=== PATIENT | female | born 1975 | race African-American/Black ===

== ENCOUNTER 2019-05-31 12:37 | Emergency (ER) | payer BC ==
[2019-05-31] MEDS ORDERED: SODIUM CHLORIDE 1,000 ML IV STA (12:53)
[2019-05-31] MEDS ORDERED: ACETAMINOPHEN 1000 MG/100 ML VIAL (NON FORMULARY) IVPB ONE (12:53)
--- NOTE | 2019-05-31 12:53 | PDOC ---
History of Present Illness - General Chief Complaint: Cold Symptoms Stated Complaint: WEAKNESS BODY ACHES COUGH Time Seen by Provider: 05/31/19 12:43 History Source: Patient Exam Limitations: No Limitations - History of Present Illness Initial Comments: 05/31/19 12:45 Ms. Sprinegr is a 44-year-old female with a history of diabetes who presents emergency department with a complaint of upper respiratory symptoms. Patient states she began to have symptoms 3 days ago. She is noted generalized weakness, a feeling of being run down. She is noted a cough with yellow mucus She has noted myalgias, no arthralgias No ear pain, no throat pain. She feels like her mouth is dry which is typically a signal that she has had fevers. Patient notes fevers particularly at night Patient states that last year she had upper respiratory infection, was given a cough medicine with codeine. She has been taking Tamiflu as well as cough medicine with mild relief at night PMH: Sdo-pbooyai-kzqnyqcyc diabetes PSH: (11 years ago), tubal ligation, (3 years ago), breast biopsy (20 years ago) Meds: Metformin, glipizide, Janumet, losartan, statin ALL: NKDA Social: Denies alcohol, drug, cigarette, vaping FH: Noncontributory ROS: GENERAL/CONSTITUTIONAL: Yes: Subjective fevers, chills HEAD, EYES, EARS, NOSE AND THROAT: No: change in vision, ear pain, discharge, sore throat, throat swelling. CARDIOVASCULAR: No: chest pain, lightheadedness, palpitations RESPIRATORY: Yes: Exertional shortness of breath no: cough, wheezing GASTROINTESTINAL: No: nausea, vomiting, diarrhea, abdominal pain GENITOURINARY: No: dysuria, hematuria, frequency, urgency, flank pain. MUSCULOSKELETAL: Yes: Myalgias no: back pain, neck pain, joint pain, muscle swelling or pain SKIN AND BREASTS: No: lesions, pallor, rash or easy bruising. NEUROLOGIC: No: headache, vertigo, paresthesias, weakness ENDOCRINE: No: unexplained weight gain or loss HEMATOLOGIC/LYMPHATIC: No: anemia, easy bleeding, swelling nodes. PE: GENERAL: The patient is in no acute distress, patient appears weak, ANO x3. HEAD: Normal EYES: PERRLA, EOMI, sclera anicteric, conjunctiva clear. ENT: Ears normal, nares patent, oropharynx clear without exudates. Moist mucous membranes. NECK: Normal range of motion, supple, no meningismus LUNGS: Breath sounds equal, clear to auscultation bilaterally. No wheezes, and no crackles. HEART:Regular rate and rhythm, normal S1 and S2 without murmur, rub or gallop. ABDOMEN: Soft, nontender, normoactive bowel sounds. EXTREMITIES: Normal range of motion, no edema. NEUROLOGICAL: Cranial nerves II through XII grossly intact. Normal speech. No focal neurological deficits. MUSCULOSKELETAL: Back non-tender to palpation, no CVA tenderness SKIN: Warm, Dry, normal turgor, no rashes or lesions noted. 05/31/19 13:50 Is this a multiple visit Asthma Patient?: No Past History - Past Medical History Allergies/Adverse Reactions: Allergies Allergy/AdvReac Type Severity Reaction Status Date / Time No Known Allergies Allergy Unverified 05/31/19 12:42 Home Medications: Ambulatory Orders Atorvastatin Ca [Lipitor] 10 mg PO HS 05/31/19 Azithromycin [Zithromax 250mg Tablets -] 250 mg PO UTDICT #6 tab 05/31/19 Glipizide [Glipizide ER] 5 mg PO HS 05/31/19 Losartan Potassium 25 mg PO HS 05/31/19 Metformin HCl [Glucophage] 1,000 mg PO BID 05/31/19 Sitagliptin Phos/Metformin HCl [Janumet Xr 100-1,000 mg Tablet] 1 tab PO HS ED Treatment Course - LABORATORY CBC & Chemistry Diagram: 05/31/19 13:15 05/31/19 13:15 Medical Decision Making - Medical Decision Making 05/31/19 13:53 44 y/o female presents with complaints of productive cough, myalgias, and feeling rundown x3 days Influenza swab obtained No throat pain to suggest strep pharyngitis Symptoms seem most consistent with viral illness Basic labs sent IV hydration start Tylenol given Laboratory Tests 05/31/19 05/31/19 05/31/19 13:15 13:15 13:15 WBC 6.3 Hgb 11.1 Hct 34.0 Plt Count 206 BUN 14.0 Creatinine 0.6 Random Glucose 144 H Urine Blood Negative Urine Nitrite Negative Ur Leukocyte Esterase Negative 05/31/19 13:55 05/31/19 15:33 Influenza negative Chest x-ray right lower lobe infiltrate (??? Chronic) We will discharged home We will give a azithromycin I've instructed the patient to rest, remain hydrated and to take over the counter analgesics/antipyretics for pain or fever as instructed on the package. I've told the patient that if they develop any new or worsening symptoms to present straight to the ER and to follow up with their primary care provider in 24-48 hours. I've explained the above diagnosis and plan to the patient of which they expressed understanding and are in agreement. Discharge - Discharge Information Problems reviewed: Yes Clinical Impression/Diagnosis: Upper respiratory infection Qualifiers: URI type: unspecified URI Qualified Code(s): J06.9 - Acute upper respiratory infection, unspecified Condition: Stable Disposition: HOME - Admission No - Follow up/Referral - Patient Discharge Instructions Patient Printed Discharge Instructions: DI for Viral Upper Respiratory Infection -- Adult Additional Instructions: Ms. Springer Thank you for coming into the ER today We have done basic labs, you were given a copy for your review Your chest x-ray shows a right lower lobe infiltrate which will need to be followed up by your doctor in the next 2 weeks Please take medications as prescribed Return to the emergency department immediately with ANY new, persistent or worsening symptoms. Continue any medications as previously prescribed by your physician. You should follow up with your primary doctor as soon as possible regarding today's emergency department visit. Please make sure your doctor reviews the results of your emergency evaluation. Thank you for coming to the [facility] today for your care. It was a pleasure to see you today. Please note that your evaluation is INCOMPLETE until you follow-up with your doctor. - Post Discharge Activity Work/Back to School Note: Back to Work
[2019-05-31 12:57] VITALS: BP 136/86; PULSE 92; TEMP 98.5; BMI 25.5
[2019-05-31] MEDS ORDERED: ACETAMINOPHEN INJECTION 100 ML IVPB ONE (13:03)
[2019-05-31 13:40] LABS: BASO % 0.6 % (0-2.0); EOS % 1.5 % (0-4.5); HEMOGLOBIN 11.1 GM/dl (10.7-15.3); LYMPH % 28.4 % (8-40); MCHC 32.7 g/dl (32.0-36.0); MEAN CELL VOLUME 85.6 fl (80-96); MEAN PLT VOLUME 7.7 fl (7.5-11.1); MONO % 9.5 % (3.8-10.2); PLATELET COUNT 206 K/MM3 (134-434); RBC 3.98 M/mm3 (3.60-5.2); WHITE BLOOD COUNT 6.3 K/mm3 (4.0-10.8)
[2019-05-31 13:47] LABS: ALBUMIN 3.6 g/dl (3.4-5.0); BILIRUBIN,TOTAL 0.4 mg/dl (0.2-1); CALCIUM 8.8 mg/dl (8.5-10); CREATININE 0.6 mg/dl (0.55-1.3); POTASSIUM 3.9 mmol/L (3.5-5.1); TOT PROT 6.9 g/dl (6.4-8.2)
[2019-05-31] MEDS ORDERED: AZITHROMYCIN 250 MG TABLET ONE (15:33)
[2019-05-31] MEDS ORDERED: AZITHROMYCIN 250 MG TABLET PO ONE (15:49)
== END 2019-05-31 15:50 | disposition home or self-care (01) ==
LOC: FER 12:37 → EDBD 12:37 → FER 15:50
PROC: 3E033NZ Introduction of Analgesics, Hypnotics, Sedatives into Peripheral Vein, Percutaneous Approach (ICD-10-PCS; principal; 2019-05-31)
DX: J06.9 Acute upper respiratory infection, unspecified (principal)
CPT/HCPCS: 36415; 71046-TC-FY; 80053; 81003; 85025; 87086; 87804; 99283-25; J0131; J7030